=== PATIENT | female | born 1995 | race Two or more races ===

== ENCOUNTER → 2022-02-06 | Emergency (ER) | payer OTHER ==
[~2022-02-06] VITALS: Ht 152.4 cm; Wt 72.6 kg
[~2022-02-06] MED LIST: EC-NAPROSYN375 MG PO; ESCITALOPRAM OX10 MG PO
== END | disposition home or self-care (01) ==
LOC: ER 08:55
DX: M94.0 Chondrocostal junction syndrome [Tietze] (principal)

== ENCOUNTER → 2022-03-11 | Emergency (ER) | payer OTHER ==
[~2022-03-11] VITALS: Ht 152.4 cm; Wt 88.5 kg
[~2022-03-11] MED LIST changes: +ALBUTEROL2.5 MG/3 M IH; +MONTELUKAST SOD10 MG PO
== END | disposition left against medical advice (07) ==
LOC: ER 10:59
DX: B34.9 Viral infection, unspecified (principal)

== ENCOUNTER 2022-04-10 14:00 | Emergency (ER) | payer OTHER ==
[~2022-04-10] VITALS: Ht 165.1 cm; Wt 88.5 kg
== END 2022-04-10 17:53 | disposition home or self-care (01) ==
LOC: ER 14:00
DX: M94.0 Chondrocostal junction syndrome [Tietze] (principal); M62.838 Other muscle spasm

== ENCOUNTER → 2023-05-14 | Emergency (ER) | payer OTHER ==
[~2023-05-14] VITALS: Ht 165.1 cm; Wt 95.3 kg
[~2023-05-14] MED LIST changes: +DICLOFENAC SODI75 MG PO; +FOCALIN XR20 MG PO; +KETOROLAC TROMETHAMINE 60 MG VIAL IM ONE
== END | disposition home or self-care (01) ==
LOC: ER 10:58
DX: M94.0 Chondrocostal junction syndrome [Tietze] (principal); R07.89 Other chest pain

== ENCOUNTER 2023-10-01 21:06 | Emergency (ER) | payer OTHER ==
[~2023-10-01] VITALS: Ht 165.1 cm; Wt 99.8 kg
[~2023-10-01 21:06] MED LIST changes: +ADVIL DUAL ACT1 EACH PO; -KETOROLAC TROMETHAMINE 60 MG VIAL IM ONE; +MONTELUKAST SODI4 M1 PO
[2023-10-01] MEDS ORDERED: KETOROLAC TROMETHAMINE 30 MG VIAL IM STA (22:14)
[2023-10-01] MEDS ORDERED: KETOROLAC TROMETHAMINE 30 MG VIAL ONE (22:28)
== END 2023-10-01 23:03 | disposition home or self-care (01) ==
LOC: ER 21:07
DX: M79.601 Pain in right arm (principal)

== ENCOUNTER 2023-12-28 09:01 | Emergency (ER) | payer OTHER ==
[~2023-12-28] VITALS: Ht 165.1 cm; Wt 104.3 kg
[2023-12-28] MEDS ORDERED: NORFLEX100MG PO (09:54)
[2023-12-28] MEDS ORDERED: KETO10TA2 PO (09:54)
[2023-12-28] MEDS ORDERED: ORPHENADRINE CITRATE 30 MG/ML AMPUL IM ONE (10:00)
[2023-12-28] MEDS ORDERED: KETOROLAC TROMETHAMINE 60 MG VIAL IM ONE (10:00)
[2023-12-28] MEDS ORDERED: LORazepam 1 MG TABLET PO ONE (10:00)
== END 2023-12-28 10:15 | disposition home or self-care (01) ==
LOC: ER 09:03
DX: M62.838 Other muscle spasm (principal); J45.909 Unspecified asthma, uncomplicated; F32.89 Other specified depressive episodes

== ENCOUNTER → 2024-02-05 | Emergency (ER) | payer OTHER ==
[~2024-02-05] VITALS: Ht 165.1 cm; Wt 101.2 kg
[~2024-02-05] MED LIST changes: +ESCITALOPRAM OX20 MG PO; +KETO10TA2 PO; +NORFLEX100MG PO
== END | disposition left against medical advice (07) ==
LOC: ER 22:18
DX: Z53.21 Procedure and treatment not carried out due to patient leaving prior to being seen by health care provider (principal)